=== PATIENT | male | born 1955 | race Caucasian/White ===

== ENCOUNTER → 2020-06-19 | Outpatient (REF) | payer OTHER | LOC: M LAB REF 17:11 | PROVIDERS: ATTEND Surgery | DX: I87.311 Chronic venous hypertension (idiopathic) with ulcer of right lower extremity (principal) ==

== ENCOUNTER → 2021-04-13 | Outpatient (CLI) | payer OTHER ==
--- NOTE | 2021-04-13 14:55 | REP ---
INDICATION: CHRONIC VENOUS HTN W/ ULCER OF RT LOWER LEG COMPARISON: None. TECHNIQUE: Attempted real-time sonographic evaluation of the right lower extremity arteries with Doppler The technologist has made note on the worksheet that the examination is extremely limited since the ultrasonographic beam was unable to penetrate the soft tissues necessary to evaluate the arterial system. The arteries reported on where the only once visualized. FINDINGS: The ankle brachial index was unobtainable All numeric values represent peak systolic velocities in cm/SEC LAP MAKER: 173 monophasic Profunda: 68 biphasic SFA proximal: 126 monophasic SFA mid: 97 monophasic All arteries distal to the mid SFA were nonvisualized. No significant stenosis was identified in the arteries visualized. Mild plaque and calcifications were identified. IMPRESSION: Limited examination as described above with above findings. <Electronically signed by Faheem Villagran > 04/13/21 [id number]
== END ==
LOC: M RAD 12:39
PROVIDERS: ATTEND Physician Assistant
DX: I87.311 Chronic venous hypertension (idiopathic) with ulcer of right lower extremity (principal); L97.812 Non-pressure chronic ulcer of other part of right lower leg with fat layer exposed; I89.0 Lymphedema, not elsewhere classified; I70.238 Atherosclerosis of native arteries of right leg with ulceration of other part of lower leg